=== PATIENT | male | born 1980 | race Caucasian/White ===

== ENCOUNTER → 2022-06-11 11:38 | Outpatient (CLI) | payer OTHER, SELFPAY ==
[2022-06-11 12:05] LABS: Hematocrit 42.9 % (41-53); Mean Corpuscular Hemoglobin 33.1 PG (26-34); Mean Corpuscular Volume 94.5 fL (80-100); Platelet Count 203 X10^3/uL (150-400); Red Blood Cell Count 4.54 X10^6/uL (4.5-5.9); Red Cell Distribution Width 13.7 % (11.6-14.8); White Blood Cell Count 4.4 X10^3/uL (4.5-11.0)
[2022-06-11 12:38] LABS: Alanine Aminotransferase 39 IU/L (<50); Albumin 4.8 g/dL (3.5-5.0); Albumin Globulin Ratio 1.4 (1.0-2.8); Alkaline Phosphatase 82 U/L (38-126); Aspartate Aminotransferase 58 IU/L (17-59); BUN Creatinine Ratio 11.5 (6-22); Bilirubin Total 0.5 mg/dL (0.2-1.3); Blood Urea Nitrogen 9 mg/dL (9-20); Calcium 8.9 mg/dL (8.4-10.2); Carbon Dioxide 25 mmol/L (22-32); Chloride 100 mmol/L (98-107); Estimated Glomerular Filt Rate > 60 mL/min (>60); Globulin 3.5 g/dL (1.7-4.1); Glucose 96 mg/dL (70-100); HEMOLYSIS < 15 (0-50); Magnesium 1.9 mg/dL (1.6-2.3); Sodium 137 mmol/L (137-145); Total Protein 8.3 g/dL (6.3-8.2)
[2022-06-11 12:39] LABS: Cholesterol 248 mg/dL (140-199); HDL Cholesterol 62 mg/dL (40-60); LDL Cholesterol Calculated 125 mg/dL (<100); Triglycerides 303 mg/dL (35-150)
[2022-06-11 13:07] LABS: TSH w/ Reflex to FT4 1.94 uIU/mL (0.47-4.68)
[2022-06-25 07:51] LABS: Percent Free Testosterone 2.65 % (1.50-4.20); Testosterone Free 8.15 ng/dL (5.00-21.00); Testosterone Total 307.7 ng/dL (264.0-916.0)
== END ==
PROVIDERS: PCP Family Medicine; Referring Provider Nurse Practitioner Family; Visit Provider Nurse Practitioner Family
DX: Z00.00 Encounter for general adult medical examination without abnormal findings (principal); R00.0 Tachycardia, unspecified; R11.2 Nausea with vomiting, unspecified
CPT/HCPCS: 36415; 80053; 80061; 83735; 84402; 84403; 84443; 85027